=== PATIENT | female | born 1975 | race Hispanic/Latino ===

== ENCOUNTER 2017-09-05 18:39 | Emergency (ER) | payer SELFPAY ==
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
[2017-09-05 20:20] VITALS: BP 122/76; TEMP 98.2; O2SAT 100
== END 2017-09-05 20:09 | disposition home or self-care (01) ==
LOC: ER 18:39
DX: S00.90XA Unspecified superficial injury of unspecified part of head, initial encounter (principal); M50.80 Other cervical disc disorders, unspecified cervical region; V89.2XXA Person injured in unspecified motor-vehicle accident, traffic, initial encounter; Z88.0 Allergy status to penicillin; I10 Essential (primary) hypertension; E03.9 Hypothyroidism, unspecified
CPT/HCPCS: 70450; 72125; 99284

== ENCOUNTER 2018-02-22 18:02 | Emergency (ER) | payer SELFPAY ==
[2018-02-22 19:03] LABS: Absolute Monocytes 0.5 K/uL (0.1-1.3); Absolute Neutrophil 5.4 K/uL (1.8-8.0); Basophils % 0.3 % (0-1.3); Eosinophils % 0.7 % (0-4.4); Hematocrit 38.4 % (36.0-45.0); Lymphocytes % 24.8 % (15.3-44.8); MCH 29.8 pg (27.0-35.0); MCV 86.5 fL (80-100); MPV 9.9 fL (7.6-11.3); Monocytes % 6.7 % (3.3-12.3); RBC Red Blood Cell Count 4.45 M/uL (3.86-4.86)
[2018-02-22 19:30] LABS: ALT/SGPT 21 U/L (12-78); AST/SGOT 11 U/L (15-37); Albumin 3.5 g/dL (3.4-5.0); Alkaline Phosphatase 47 U/L (45-117); BUN Blood Urea Nitrogen 12 mg/dL (7-18); Bicarbonate 23 mmol/L (21-32); Bilirubin Direct 0.1 mg/dL (0-0.2); Bilirubin Total 0.3 mg/dL (0.2-1.0); Glucose Level 92 mg/dL (74-106); Lipase 177 U/L (73-393); Potassium 3.9 mmol/L (3.5-5.1); Protein, Total 7.2 g/dL (6.4-8.2); Sodium Level 139 mmol/L (136-145); Troponin I < 0.02 ng/mL (0.0-0.045)
[2018-02-22 19:55] LABS: Urine Blood 2+ (NEG); Urine Glucose NEGATIVE (NEG); Urine Protein NEGATIVE (NEG)
--- NOTE | 2018-02-22 20:34 | RAD REPORT ---
EXAM DESCRIPTION: CT - Abdomen Pelvis W Contrast - 02/22/2018 7:57 pm CLINICAL HISTORY: Abdominal pain/dysuria COMPARISON: none. TECHNIQUE: Computed axial tomography of the abdomen pelvis was obtained. 100 cc Isovue-300 was admin istered intravenously. Oral contrast was not requested which limits evaluation of bowel. All CT scans are performed using dose optimization technique as appropriate and may include automated exposure control or mA/KV adjustment according to patient size. FINDINGS: The liver, spleen, pancreas, adrenal and kidneys appear unremarkable. There is no evidence of diverticulitis. The appendix is normal. An adnexal mass is not seen An umbilical hernia contains fat. The neck measures 3 centimeters. Mild edema is present within herni ated fat. IMPRESSION: Umbilical hernia. Mild edema within the herniated fat may indicate inflammation
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
--- NOTE | 2018-02-22 21:31 | ER ---
Nurse's Notes [facility] Name: Claudine Deng Age: 42 yrs Sex: Female : 1975 Arrival Date: 02/22/2018 Time: 18:04 Bed 5 Private MD: Diagnosis: Dysuria;Hematuria, unspecified;Umbilical hernia;Back Pain Presentation: 02/22 18:06 Presenting complaint: Patient states: Mid back pain and burning with urination for 1 aj week. Denies fever. Transition of care: patient was not received from another setting of care. Onset of symptoms was February 15, 2018. Risk Assessment: Do you want to hurt yourself or someone else? Patient reports no desire to harm self or others. Initial Sepsis Screen: Does the patient meet any 2 criteria? No. Patient's initial sepsis screen is negative. Does the patient have a suspected source of infection? No. Patient's initial sepsis screen is negative. Care prior to arrival: None. 18:06 Method Of Arrival: Ambulatory aj 18:06 Acuity: LUAN 3 aj Triage Assessment: 18:07 General: Appears in no apparent distress. comfortable, Behavior is calm, cooperative, aj appropriate for age. Pain: Complains of pain in mid back area. Neuro: Level of Consciousness is awake, alert, obeys commands, Oriented to person, place, time, situation, Appropriate for age. Respiratory: Airway is patent Respiratory effort is even, unlabored, Respiratory pattern is regular, symmetrical. : Reports burning with urination, pain in bilateral in lower back. Musculoskeletal: Circulation, motion, and sensation intact. 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 - Social history:: Smoking status: Patient/guardian denies using tobacco. - Ebola Screening: : Patient negative for fever greater than or equal to 101.5 degrees Fahrenheit, and additional compatible Ebola Virus Disease symptoms Patient denies exposure to infectious person Patient denies travel to an Ebola-affected area in the 21 days before illness onset No symptoms or risks identified at this time. Screenin:16 Abuse screen: Denies threats or abuse. Nutritional screening: No deficits noted. tw2 Tuberculosis screening: No symptoms or risk factors identified. Fall Risk None identified. Assessment: 19:45 Reassessment: Patient appears in no apparent distress at this time. No changes from d3 previously documented assessment. Patient and/or family updated on plan of care and expected duration. Pain level reassessed. Patient is alert, oriented x 3, equal unlabored respirations, skin warm/dry/pink. see triage assessment. Neuro: Level of Consciousness is awake, alert, obeys commands, Oriented to person, place, time, situation. 20:30 Reassessment: Patient appears in no apparent distress at this time. No changes from jd3 previously documented assessment. Patient and/or family updated on plan of care and expected duration. Pain level reassessed. Patient is alert, oriented x 3, equal unlabored respirations, skin warm/dry/pink. 21:05 Reassessment: Patient appears in no apparent distress at this time. No changes from jd3 previously documented assessment. Patient and/or family updated on plan of care and expected duration. Pain level reassessed. Patient is alert, oriented x 3, equal unlabored respirations, skin warm/dry/pink. 21:53 Reassessment: Patient and/or family updated on plan of care and expected duration. Pain ea level reassessed. Patient is alert, oriented x 3, equal unlabored respirations, skin warm/dry/pink. Discharge instructions given to patient, verbalized the understanding of instruction. Vital Signs: 18:07 BP 119 / 62; Pulse 65; Resp 19; Temp 98.5; Pulse Ox 100% on R/A; Weight 81.65 kg; aj Height 5 ft. 4 in. (162.56 cm); 21:02 BP 124 / 87; Pulse 69; Resp 17; Pulse Ox 100% on R/A; mw2 21:55 BP 123 / 80; Pulse 70; Resp 18; Pulse Ox 99% on R/A; ea 18:07 Body Mass Index 30.90 (81.65 kg, 162.56 cm) ED Course: 18:04 Patient arrived in ED. mr 18:07 Triage completed. aj 18:07 Arm band placed on right wrist. Patient placed in an exam room. aj 18:09 Mahad Han, RN is Primary Nurse. bp 18:12 Adonay Orta PA is PHCP. [facility] 18:13 Mitch Chiang MD is Attending Physician. [facility] 18:15 Bed in low position. Call light in reach. Adult w/ patient. Pulse ox on. NIBP on. tw2 18:53 Inserted saline lock: 20 gauge in right antecubital area, using aseptic technique. tw2 Blood collected. 19:[address] 2 19:53 CT completed. Patient tolerated procedure well. Patient moved back from CT. 2 19:57 CT Abd/Pelvis - W/Contrast In Process Unspecified. EDMS 21:28 Gilbert Gibson MD is Referral Physician. [facility] 21:28 Haseeb Quan MD is Referral Physician. [facility] 21:28 Jairo Pabon MD is Referral Physician. [facility] 21:28 Amber Mitchell MD is Referral Physician. [facility] 21:54 No provider procedures requiring assistance completed. IV discontinued, intact, ea bleeding controlled, No redness/swelling at site. Pressure dressing applied. Administered Medications: No medications were administered Outcome: 21:29 Discharge ordered by MD. [facility] 21:54 Discharged to home ambulatory, with family. ea 21:54 Condition: improved 21:54 Discharge instructions given to patient, Instructed on discharge instructions, follow up and referral plans. medication usage, Demonstrated understanding of instructions, follow-up care, medications, Prescriptions given X 3. 21:55 Patient left the ED. ea Signatures: Dispatcher [employer] EDMS Belen Harrell, RN Adonay Carlson PA PA maura ChampionVickie Rachelle Zambrano RN RN tw2 Elza Lomeli 2 Diana Ellison RN RN ea Davies, Jonathon, RN RN jMahad Arnold, RN RN Sam Mao mw2
[2018-02-22 22:02] VITALS: TEMP 98.5
[2018-02-22 22:07] VITALS: BP 123/80; O2SAT 99
== END 2018-02-22 21:55 | disposition home or self-care (01) ==
LOC: ER 18:02
DX: K42.9 Umbilical hernia without obstruction or gangrene (principal); R31.9 Hematuria, unspecified; R30.0 Dysuria; I10 Essential (primary) hypertension; E03.9 Hypothyroidism, unspecified; Z88.0 Allergy status to penicillin
CPT/HCPCS: 36415; 74177; 80048; 80076; 81003; 81025; 83690; 84484; 85025; 99284; Q9967

== ENCOUNTER 2019-11-24 09:45 | Day surgery (SDC) | payer SELFPAY ==
[2019-11-24] MEDS ORDERED: Ringers Lactate 1,000 ML IV ONE ×2 (10:01→12:14)
[2019-11-24] MEDS ORDERED: CEFAZOLIN/SWI 2gm 0 GM/0 ML SYR ONE (10:01)
[2019-11-24 10:07] LABS: Specific Gravity 1.025 (1.005-1.030)
[2019-11-24] MEDS ORDERED: BUPIVACA 0.25%/EPI 0.0005%/PF 30 ML VIAL ONE (10:13)
[2019-11-24] MEDS ORDERED: MIDAZOLAM HCL 2 MG/2 ML INJ ONE (10:23)
[2019-11-24] MEDS ORDERED: propofoL 200 MG/20 ML VIAL IV ONE (10:23)
[2019-11-24] MEDS ORDERED: FENTANYL CITR 100 MCG/2 ML ONE ×2 (10:23→11:50)
[2019-11-24] MEDS ORDERED: ROCURONIUM 50 MG/5 ML VIAL IV ONE (10:23)
[2019-11-24] MEDS ORDERED: LIDOCAINE 1% MPF 5 ML VIAL ONE (10:23)
[2019-11-24] MEDS ORDERED: VANCOMYCIN 1 GM/VIAL ONE (11:24)
--- OUTSIDE RECORDS SUMMARY | 2019-11-24 11:28 | XMS REPORT | Continuity of Care Document ---
:1975 Author Organization [facility] t Address [address] [place] [address] Care Team Providers Name Role Phone Pob1, Care Clinic Attending Clinician Unavailable Anthony HERNANDEZ, S Attending Clinician Gabe Quan MD Attending Clinician Pob, Lab Main Attending Clinician Unavailable Problems This patient has no known problems. Allergies, Adverse Reactions, Alerts This patient has no known allergies or adverse reactions. Medications This patient has no known medications. Procedures This patient has no known procedures. Encounters Start End Encounter Admission Attending Care Care Encounter Source Date/Time Date/Time Type Type Clinicians Facility Department ID 2019-07-22 2019-07-22 Urgent Pob1, Acute [facility] [id number] 17:53:05 18:52:38 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
[2019-11-24] MEDS ORDERED: ONDANSETRON 4 MG/2 ML VIAL ONE ×2 (11:53→13:09)
[2019-11-24] MEDS ORDERED: GLYCOPYRROLATE 0.2 MG/ML SYR ONE ×2 (11:53)
[2019-11-24] MEDS ORDERED: dexAMETHasone 10 MG/ML VIAL ONE (11:53)
[2019-11-24] MEDS ORDERED: KETOROLAC 30 MG/ML INJ ONE (11:53)
[2019-11-24] MEDS ORDERED: NEOSTIGMINE 1 MG/ML -5 ML ONE (11:53)
--- NOTE | 2019-11-24 12:21 | P.OP ---
Preoperative diagnosis: Ventral Incisional Hernia Postoperative diagnosis: Ventral Incisional Hernia Primary procedure: Laparoscopic Ventral Incisional Hernia Repair with Mesh Secondary procedure: Laparoscopic Adhesiolysis Anesthesia: GETA + Local Estimated blood loss: <5cc Specimen: None Findings: Large Incisional Hernia Complications: None Implants: Bard Ventralite ST with echo 15.2 cm round mesh Transferred to: Recovery Room Condition: Good
[2019-11-24] MEDS: HYDROMORPHONE HCL 2 MG/ML inj ONE ×4 (12:40→13:02)
[2019-11-24 12:45] VITALS: O2SAT 100
[2019-11-24] MEDS ORDERED: HYDROCODONE/APAP 5/325 MG TAB ONE (13:48)
[2019-11-24 14:56] VITALS: BP 116/51; TEMP 97.1
--- NOTE | 2019-11-24 22:21 | OP ---
Date of Procedure: 11/24/2019 Surgeon: Levi Camarena MD, Brief History Of Present Illness: The patient is a 43-year-old female, who had a laparoscopic cholec ystectomy and developed a hernia shortly thereafter in the periumbilical region, continue to worse, p rogressive pain. As such, I saw and evaluated the patient, and found she was deemed appropriate for operative intervention with a large ventral hernia. Preoperative Diagnosis: Ventral incisional hernia. Postoperative Diagnosis: Ventral incisional hernia. Procedure Performed: 1.Laparoscopic ventral hernia repair with mesh. 2.Laparoscopic adhesiolysis. Anesthesia: General endotracheal plus local with 0.25% Marcaine with epinephrine. Estimated Blood Loss: Less than 5 mL. Specimens: None. Findings: Large incisional hernia. Complications: None. Implants: Bard Ventralight ST with Echo Positioning, 15.2 cm round mesh. Disposition: Transferred to recovery room in good condition. Procedure In Detail: After informed was obtained, the patient was brought to the operating room, pre pped and draped in the usual sterile fashion. After adequate anesthesia was achieved, a left upper q uadrant incision was made. After appropriately anesthetizing the skin, a 5 mm 0-degree optical troca r was introduced in the abdomen without evidence of complication. Insufflation was obtained to 15 mm Hg at this time. There was no injury to vital structures upon entry into the abdomen. After this, t he abdomen was completely insufflated and inspected. A large amount of the omentum was found to be i n a ventral incisional hernia. At this point, I then placed 2 additional trocars, 1 in the left lowe r quadrant, this was a 12 mm trocar under and placed under direct visualization without evidence of c omplication and 1 in the right upper quadrant, which was similarly anesthetized and sharply incised. A 5 mm trocar was introduced in the abdomen without evidence of complication. Dissection and LigaSu re were used to remove the omentum, which was a significant portion of the omentum through the hernia defect and this was put back in the normal anatomic position without evidence of complication. I th en inspected the hernia and found it to be approximately a 10 cm hernia in size. I brought in the En do Stitch with a V-Loc and proceeded to suture the hernia defect closed in a running fashion without evidence of any complication and good apposition of the tissue was appreciated at this point. At thi s time, I then brought a [address] mesh with Echo Positioning System in through the 12 mm trocar, positioned in the central portion of the defect and deployed it at this point. At this point, I then used the SorbaFix absorbable fixation system and used approximately 60 tacks to s ecure the mesh. The balloon deployment system was removed and found to be intact on the back table a nd the remainder of the absorbable fixation tacks were used as a double crown type fashion to secure the mesh at the anterior abdominal wall with good apposition. The patient was checked under desuffla tion and regular insufflation. There was no evidence of any complication. At this point, I then rem daniele the 12 mm trocar and closed the trocar defect with a Erick-Christiano suture passer with a 0 Vicr yl in interrupted fashion with good approximation of tissues. All skin incisions were then copiously irrigated after completely desufflating the abdomen under direct visualization and the skin was then closed with a 4-0 Monocryl in a running fashion with Dermabond placed on top. The patient tolerated the procedure well without evidence of complication, transferred to PACU in good condition. All cou nts were correct at the end of the case. GILLES/IZZY Voice ID: [id number] Report ID: [id number]
== END 2019-11-24 14:50 | disposition home or self-care (01) ==
LOC: PRE 09:45
PROVIDERS: ATTEND Surgery
PROC: 0WUF4JZ Supplement Abdominal Wall with Synthetic Substitute, Percutaneous Endoscopic Approach (ICD-10-PCS; principal; 2019-11-24 12:00)
DX: K43.2 Incisional hernia without obstruction or gangrene (principal); I10 Essential (primary) hypertension; E03.9 Hypothyroidism, unspecified; Z11.59 Encounter for screening for other viral diseases; Z90.49 Acquired absence of other specified parts of digestive tract; Z88.0 Allergy status to penicillin
CPT/HCPCS: 81025; J0690; J1100; J1170; J2250; J2405; J2704; J2710; J3010; J3370; J7120; U0002

== ENCOUNTER 2023-03-16 14:41 | Emergency (ER) | payer SELFPAY ==
--- OUTSIDE RECORDS SUMMARY | 2023-03-16 14:45 | XMS REPORT | Continuity of Care Document ---
:1975 Author Organization [facility] t Address [address] [facility] [address] [place] [address] Care Team Providers Name Role Phone Barbara Hill Baljeet Primary Care Physician Edwige Bell PA-C Attending Clinician Unknown, Attending Attending Clinician Unavailable EDWIGE BELL Attending Clinician Unavailable ELLEN PAGE Attending Clinician Unavailable Ellen Page MD Attending Clinician HOSEA CABAN Attending Clinician Unavailable Hosea Lopez Attending Clinician Doctor Unassigned, [place] Attending Clinician Unavailable [email or web address] Attending Clinician Unavailable NEETA KNOX Attending Clinician Unavailable Neeta Knox MD Attending Clinician JACOB FOSTER Attending Clinician Unavailable Jacob Foster MD Attending Clinician LYNNE CROCKETT Attending Clinician Unavailable Lynne Crockett MD Attending Clinician Pob, [facility] Main Attending Clinician Unavailable Jordy ONTIVEROS Attending Clinician Unavailable Jordy Molina Attending Clinician JOE MAIN Attending Clinician Unavailable Joe Carroll Attending Clinician SCOTT JEAN BAPTISTE Attending Clinician Unavailable Scott Jean Baptiste DO Attending Clinician JOSE LENZ Attending Clinician Unavailable Nurse, Adc Pob Immunization Attending Clinician Unavailable Jose Lenz DO Attending Clinician ZAKIA VENTURA Attending Clinician Unavailable URI MEEKS Attending Clinician Unavailable Pob[facility], [facility] Attending Clinician Unavailable MITA MARTÍNEZ Attending Clinician Unavailable Frida Romero S Attending Clinician BRANDON QUAN Attending Clinician Unavailable Brandon Quan MD Attending Clinician [email or web address] Admitting Clinician Unavailable NEETA KNOX Admitting Clinician Unavailable Jordy ONTIVEROS Admitting Clinician Unavailable SCOTT JEAN BAPTISTE Admitting Clinician Unavailable BRANDON QUAN Admitting Clinician Unavailable Payers Payer Name Policy Type Policy Number Effective Date Expiration Date S meggan MEDICAID ALIEN PENDING 2022 2022 PENDING 00:00:00 00:00:00 Problems Condition Condition Condition Status Onset Resolution Last Treating Co mments Source Name Details Category Date Date Treatment Clinician Date Hypothyroi Hypothyroi Problem Active [facility] dism dism 07-02 Medical 00:00: 00 Obesity Obesity Problem Active [facility] 05 Medical 00:00: 00 Hypertensi Hypertensi Problem Active [facility] ve ve -05 Medical disorder Disorder 00:00: 00 Symptom Symptom Problem Active [facility] occurs Occurs 07-02 Medical premenstru Premenstru 00:00: ally ally 00 Obesity Obesity Disease Active [facility] (BMI (BMI 6-08 ity of 30-39.9) 30-39.9) 00:00: [place] 00 Medical Branch Second-deg Second-deg Disease Active Overview : Univers ree ree 10-19 Formattin ity of perineal perineal 00:00: g of this [place] laceration laceration 00 note Me dical , with , with might be Branch delivery delivery different from the original. Vacuum assist Pre-eclamp Pre-eclamp Disease Active Overview : Univers nathan, nathan, 10-19 Formattin ity of delivered delivered 00:00: [place] of this [place] 00 note Medical might be Branch different from the original. ICD10 Diagnosis [address] [employer] Maternal Maternal Disease Active Overview: Un [place] diabetes diabetes 10-19 Formattin ity of mellitus mellitus 00:00: g of this [place] with with 00 note Medical delivery delivery might be Bran ch different from the original. [id number] Diagnosis Term [address] [facility] [employer] Second-deg Second-deg Disease Active Overview : Univers ree ree 10-19 Formattin ity of perineal perineal 00:00: g of this [place] laceration laceration 00 note Me dical , with , with might be Branch delivery delivery different from the original. Vacuum assist Maternal Maternal Disease Active Overview: Un [place] diabetes diabetes 10-19 Formattin ity of mellitus mellitus 00:00: g of this [place] with with 00 note Medical delivery delivery might be Bran ch different from the original. [id number] Diagnosis [address] [facility] [employer] Hypothyroi Hypothyroi Disease Active Overview : [facility] dism dism - Formattin ity of 00:00: g of this [place] 00 note Medical might be Branch different from the original. ICD10 [address] [facility] [employer] HLD HLD Disease Active Overview: Univer s (hyperlipi (hyperlipi 07-16 Formattin ity of demia) demia) 00:00: g of this [place] 00 note Medical might be Branch different from the original. ICD10 [address] [facility] [employer] Allergies, Adverse Reactions, Alerts Allergy Allergy Status Severity Reaction(s) Onset Inactive Treating Comm ents Source Name Type Date Date Clinician Penicill Propensi Active Rash Univer s ins ty to 9-25 ity of adverse 00:00: [place] reaction 00 Medical s Branch PENICILL Drug Active Rash Univers INS Class 9-25 ity of 00:00: [place] 00 Medical Branch Penicill Propensi Active Rash Univer s ins ty to 9-25 ity of adverse 00:00: [place] reaction 00 Medical s Branch Penicill Propensi Active Rash Univer s ins ty to 9-25 ity of adverse 00:00: [place] reaction 00 Medical s Branch PENICILL Allergy Active Rash [facility] INS to Medical substanc e Social History Social Habit Start Date Stop Date Quantity Comments Source Sexual orientation Univer sity of [facility] Exposure to 2022-09-16 2022-09-26 Not sure University of SARS-CoV-2 (event) 00:00:00 03:20:00 [facility] Tobacco use and 2020-05-10 2020-05-10 Smokeless Universit y of exposure 00:00:00 00:00:00 tobacco non-user [facility] dical [place] Alcohol intake 2020-05-10 2020-05-10 Current University of 00:00:00 00:00:00 non-drinker of [facility] alcohol Branch (finding) History of Social 2020-02-16 2020-02-16 Univers ity of function 00:00:00 00:00:00 [facility] [birth year] [facility] Smoking Status Start Date Stop Date Source Never smoked tobacco [facility] Medications Ordered Filled Start Stop Current Ordering Indication Dosage Frequency Signature Comments Components Source Medication Medication Date Date Medication? Clinician (SIG) Name Name armen 2022- No [id number] Take 2 Univers n 250 mg 09-28 tablets by ity of tablet 00:00: 04:59 mouth [place] 00 :00 daily for Medical 1 day, Branch THEN 1 tablet daily for 4 days. ibuprofen 2022- No 800mg 800 mg, Uni vers (IBU) 09-26 Oral, ity of tablet 800 09:30: 09:24 ONCE, 1 [place] mg 00 :00 dose, On Medical e Branch 09/26/22 at 0430, JOHN ibuprofen Yes [id number] 800mg Take 1 Univers 800 mg 5-30 [id number] tablet by ity of tablet 00:00: mouth [place] 00 every 8 Medical (eight) Branch hours as needed for Pain (scale 4-6). ibuprofen Yes [id number] 800mg Take 1 Univers 800 mg 5-30 [id number] tablet by ity of tablet 00:00: mouth [place] 00 every 8 Medical (eight) Branch hours as needed for Pain (scale 4-6). Ciprofloxac 2022- No [id number] 3[drp] Place 3 Univers in 0.2 % 09-26 [id number] Drops in ity o f otic drops 00:00: 04:59 each ear 2 [place] 00 :00 (two) Medical times Branch daily for 7 days. Ciprofloxac 2022- No [id number] 3[drp] Place 3 Univers in 0.2 % 5-30 10-04 [id number] Drops in ity o f otic drops 00:00: 04:59 each ear 2 [place] 00 :00 (two) Medical times Branch daily for 7 days. ondansetron 2022-0 Yes [id number] 4mg Take 1 Univers 4 mg 2-01 tablet by ity of disintegrat 00:00: mouth [place] ing tablet 00 every 8 Medica l (eight) Branch hours as needed for Nausea and Vomiting (N/V). benzonatate 2022-0 Yes [id number] 200mg Take 1 Univers 200 mg 2-01 capsule by ity of capsule 00:00: mouth 3 00 (three) Medical times Branch daily as needed for Cough. ondansetron 2022-0 Yes [id number] 4mg Take 1 Univers 4 mg 2-01 tablet by ity of disintegrat 00:00: mouth [place] ing tablet 00 every 8 Medica l (eight) Branch hours as needed for Nausea and Vomiting (N/V). benzonatate 2022-0 Yes [id number] 200mg Take 1 Univers 200 mg 2-01 capsule by ity of capsule 00:00: mouth 3 [place] 00 (three) Medical times Branch daily as needed for Cough. ondansetron 2022-0 Yes [id number] 4mg Take 1 Univers 4 mg 2-01 tablet by ity of disintegrat 00:00: mouth [place] ing tablet 00 every 8 Medica l (eight) Branch hours as needed for Nausea and Vomiting (N/V). benzonatate 2022-0 Yes [id number] 200mg Take 1 Univers 200 mg 2-01 capsule by ity of capsule 00:00: mouth 3 00 (three) Medical times Branch daily as needed for Cough. oseltamivir 2022-0 2022- No [id number] 75mg Take 1 Univers (TAMIFLU) 2-01 02-07 4100 capsule by ity of 75 mg 00:00: 05:59 mouth 2 [place] capsule 00 :00 (two) Medical times Branch daily for 5 days. ondansetron 2023-0 2023- No 4mg 4 mg, Slow Univers (ZOFRAN 05-03 IV Push, ity of (PF)) 02:15: 01:39 ONCE, 1 [place] injection 4 00 :00 dose, On Medi francine mg Sun05/02/22 Branch at 2014, JOHN iopamidol 2022-0 2022- No [id number] 80mL 80 mL, Univers (ISOVUE 05-03 Intravenou ity o f 370-500 mL) 02:02: 02:15 s, ONCE, 1 [place] injection 00 :00 dose, On Medica l 80 mL Sun05/02/22 Branch at 2014, Routine morpHINE (4 2022- No 4mg 4 mg, Slow Univers mg/mL) 05-03 IV Push, ity of injection 4 01:15: 01:39 ONCE, 1 [place] mg 00 :00 dose, On Medical Sun05/02/22 Branch at 191, STAT ondansetron 2022-0 Yes [id number] 4mg Take 1 Univers 4 mg 1-03 tablet by ity of disintegrat 00:00: mouth [place] ing tablet 00 every 4 Medica l (four) Branch hours as needed for Nausea and Vomiting (N/V). traMADoL 50 2022-0 Yes [id number] 50mg Take 1 Univ ers mg tablet 1-03 tablet by ity o f 00:00: mouth [place] 00 every 6 Medical (six) Branch hours as needed for Pain (scale 4-6). Indication s: acute pain ondansetron 2022-0 Yes [id number] 4mg Take 1 Univers 4 mg 1-03 tablet by ity of disintegrat 00:00: mouth [place] ing tablet 00 every 4 Medica l (four) Branch hours as needed for Nausea and Vomiting (N/V). traMADoL 50 2022-0 Yes [id number] 50mg Take 1 Univ ers mg tablet 1-03 tablet by ity o f 00:00: mouth [place] 00 every 6 Medical (six) Branch hours as needed for Pain (scale 4-6). Indication s: acute pain ondansetron 2022-0 Yes [id number] 4mg Take 1 Univers 4 mg 1-03 tablet by ity of disintegrat 00:00: mouth [place] ing tablet 00 every 4 Medica l (four) Branch hours as needed for Nausea and Vomiting (N/V). traMADoL 50 0 Yes [id number] 50mg Take 1 Univ ers mg tablet 1-03 tablet by ity o f 00:00: mouth [place] 00 every 6 Medical (six) Branch hours as needed for Pain (scale 4-6). Indication s: acute pain ondansetron Yes [id number] 4mg Take 1 Univers 4 mg 1-03 tablet by ity of disintegrat 00:00: mouth [place] ing tablet 00 every 4 Medica l (four) Branch hours as needed for Nausea and Vomiting (N/V). traMADoL 50 Yes [id number] 50mg Take 1 Univ ers mg tablet 1-03 tablet by ity o f 00:00: mouth [place] 00 every 6 Medical (six) Branch hours as needed for Pain (scale 4-6). Indication s: acute pain ondansetron Yes [id number] 4mg Take 1 Univers 4 mg 1-03 tablet by ity of disintegrat 00:00: mouth [place] ing tablet 00 every 4 Medica l (four) Branch hours as needed for Nausea and Vomiting (N/V). traMADoL 50 Yes [id number] 50mg Take 1 Univ ers mg tablet 1-03 tablet by ity o f 00:00: mouth [place] 00 every 6 Medical (six) Branch hours as needed for Pain (scale 4-6). Indication s: acute pain levothyroxi 2021-04 Yes [id number] 125ug Take 1 Univers ne 125 mcg 0-24 tablet by ity of tablet 00:00: mouth [place] 00 every Medical morning. Branch levothyroxi 2021-04 Yes [id number] 125ug Take 1 Univers ne 125 mcg 0-24 tablet by ity of tablet 00:00: mouth [place] 00 every Medical morning. Branch levothyroxi 2021-04 Yes [id number] 125ug Take 1 Univers ne 125 mcg 0-24 tablet by ity of tablet 00:00: mouth [place] 00 every Medical morning. Branch levothyroxi 2021-04 Yes [id number] 125ug Take 1 Univers ne 125 mcg 0-24 tablet by ity of tablet 00:00: mouth [place] 00 every Medical morning. Branch levothyroxi 2021-04 Yes [id number] 125ug Take 1 Univers ne 125 mcg 0-24 tablet by ity of tablet 00:00: mouth [place] 00 every Medical morning. Branch levothyroxi 2021-04 Yes [id number] 125ug Take 1 Univers ne 125 mcg 0-24 tablet by ity of tablet 00:00: mouth [place] 00 every Medical morning. Branch levothyroxi 0 Yes [id number] 125ug Take 1 Univers ne 125 mcg 4-22 tablet by ity of tablet 00:00: mouth [place] 00 every Medical morning. Branch levothyroxi 2021-0 2021- No [id number] 125ug Take 1 Univers ne 125 mcg 4-22 10-24 tablet by ity of tablet 00:00: 00:00 mouth [place] 00 :00 every Medical morning. Branch levothyroxi 0 Yes [id number] 125ug Take 1 Univers ne 125 mcg 3-15 tablet by ity of tablet 00:00: mouth [place] 00 every Medical morning. Branch levothyroxi 2021-0 Yes [id number] 125ug Take 1 Univers ne 125 mcg 3-15 tablet by ity of tablet 00:00: mouth [place] 00 every Medical morning. Branch levothyroxi 0 Yes [id number] 125ug Take 1 Univers ne 125 mcg 3-15 tablet by ity of tablet 00:00: mouth [place] 00 every Medical morning. Branch levothyroxi 2021-0 2021- No [id number] 125ug Take 1 Univers ne 125 mcg 3-15 04-22 tablet by ity of tablet 00:00: 00:00 mouth [place] 00 :00 every Medical morning. Branch lisinopriL 2021-0 Yes 5mg Take 5 mg Un [place] 5 mg tablet 1-16 by mouth ity of 00:00: every [place] 00 morning. Medical Branch lisinopriL 2-0 Yes 5mg Take 5 mg Un [place] 5 mg tablet 1-16 by mouth ity of 00:00: every [place] 00 morning. Medical Branch lisinopriL 2-0 Yes 5mg Take 5 mg Un [place] 5 mg tablet 1-16 by mouth ity of 00:00: every [place] 00 morning. Medical Branch lisinopriL 2021-0 Yes 5mg Take 5 mg Un [place] 5 mg tablet 1-16 by mouth ity of 00:00: every [place] 00 morning. Medical Branch lisinopriL 2-0 Yes 5mg Take 5 mg Un [place] 5 mg tablet 1-16 by mouth ity of 00:00: every morning. Medical Branch lisinopriL 2-0 Yes 5mg Take 5 mg Un [place] 5 mg tablet 1-16 by mouth ity of 00:00: every morning. Medical Branch lisinopriL 2-0 Yes 5mg Take 5 mg Un [place] 5 mg tablet 1-16 by mouth ity of 00:00: every morning. Medical Branch lisinopriL 2-0 Yes 5mg Take 5 mg Un [place] 5 mg tablet 1-16 by mouth ity of 00:00: every morning. Medical Branch lisinopriL 2-0 Yes 5mg Take 5 mg Un [place] 5 mg tablet 1-16 by mouth ity of 00:00: morning. Medical Branch lisinopriL 2021-0 Yes 5mg Take 5 mg Un [place] 5 mg tablet 1-16 by mouth ity of 00:00: morning. Medical Branch naproxen 2020-04 Yes [id number] 500mg Take 1 U nivers 500 mg 2-16 tablet by ity of tablet 00:00: mouth (two) Medical times Branch daily with meals. methocarbam 2020-04 Yes [id number] 500mg Take 1 Univers oL 500 mg 2-16 tablet by ity o f tablet 00:00: mouth (four) Medical times Branch daily as needed (muscle pain). ondansetron 2020-04 Yes [id number] 4mg Take 1 Univers (ZOFRAN 2-16 tablet by ity of ODT) 4 mg 00:00: mouth [place] disintegrat 00 every 8 Medic al ing tablet (eight) Branch hours as needed for Nausea and Vomiting (N/V). naproxen 2020-04 Yes [id number] 500mg Take 1 U nivers 500 mg 2-16 tablet by ity of tablet 00:00: mouth (two) Medical times Branch daily with meals. methocarbam 2020-04 Yes [id number] 500mg Take 1 Univers oL 500 mg 2-16 tablet by ity o f tablet 00:00: mouth (four) Medical times Branch daily as needed (muscle pain). ondansetron 2020-04 Yes [id number] 4mg Take 1 Univers (ZOFRAN 2-16 tablet by ity of ODT) 4 mg 00:00: mouth [place] disintegrat 00 every 8 Medic al ing tablet (eight) Branch hours as needed for Nausea and Vomiting (N/V). naproxen 2020-04 Yes [id number] 500mg Take 1 U nivers 500 mg 2-16 tablet by ity of tablet 00:00: mouth 2 00 (two) Medical times Branch daily with meals. methocarbam 2020-04 Yes [id number] 500mg Take 1 Univers oL 500 mg 2-16 tablet by ity o f tablet 00:00: mouth 4 00 (four) Medical times Branch daily as needed (muscle pain). ondansetron 2020-04 Yes [id number] 4mg Take 1 Univers (ZOFRAN 2-16 tablet by ity of ODT) 4 mg 00:00: mouth [place] disintegrat 00 every 8 Medic al ing tablet (eight) Branch hours as needed for Nausea and Vomiting (N/V). naproxen 2020-04 Yes [id number] 500mg Take 1 U nivers 500 mg 2-16 tablet by ity of tablet 00:00: mouth 00 (two) Medical times Branch daily with meals. methocarbam 2020-04 Yes [id number] 500mg Take 1 Univers oL 500 mg 2-16 tablet by ity o f tablet 00:00: mouth 4 (four) Medical times Branch daily as needed (muscle pain). ondansetron 2020-04 Yes [id number] 4mg Take 1 Univers (ZOFRAN 2-16 tablet by ity of ODT) 4 mg 00:00: mouth [place] disintegrat 00 every 8 Medic al ing tablet (eight) Branch hours as needed for Nausea and Vomiting (N/V). naproxen 2020-04 Yes [id number] 500mg Take 1 U nivers 500 mg 2-16 tablet by ity of tablet 00:00: mouth 2 [place] 00 (two) Medical times Branch daily with meals. methocarbam 2020-04 Yes [id number] 500mg Take 1 Univers oL 500 mg 2-16 tablet by ity o f tablet 00:00: mouth 4 00 (four) Medical times Branch daily as needed (muscle pain). ondansetron 2020-04 Yes [id number] 4mg Take 1 Univers (ZOFRAN 2-16 tablet by ity of ODT) 4 mg 00:00: mouth [place] disintegrat 00 every 8 Medic al ing tablet (eight) Branch hours as needed for Nausea and Vomiting (N/V). naproxen 2020-04 Yes [id number] 500mg Take 1 U nivers 500 mg 2-16 tablet by ity of tablet 00:00: mouth (two) Medical times Branch daily with meals. methocarbam 2020-04 Yes [id number] 500mg Take 1 Univers oL 500 mg 2-16 tablet by ity o f tablet 00:00: mouth (four) Medical times Branch daily as needed (muscle pain). naproxen 2020-04 Yes [id number] 500mg Take 1 U nivers 500 mg 2-16 tablet by ity of tablet 00:00: mouth (two) Medical times Branch daily with meals. methocarbam 2020-04 Yes [id number] 500mg Take 1 Univers oL 500 mg 2-16 tablet by ity o f tablet 00:00: mouth (four) Medical times Branch daily as needed (muscle pain). naproxen 2020-04 Yes [id number] 500mg Take 1 U nivers 500 mg 2-16 tablet by ity of tablet 00:00: mouth (two) Medical times Branch daily with meals. methocarbam 2020-04 Yes [id number] 500mg Take 1 Univers oL 500 mg 2-16 tablet by ity o f tablet 00:00: mouth (four) Medical times Branch daily as needed (muscle pain). naproxen 2020-04 Yes [id number] 500mg Take 1 U nivers 500 mg 2-16 tablet by ity of tablet 00:00: mouth (two) Medical times Branch daily with meals. methocarbam 2020-04 Yes [id number] 500mg Take 1 Univers oL 500 mg 2-16 tablet by ity o f tablet 00:00: mouth (four) Medical times Branch daily as needed (muscle pain). naproxen 2020-04 Yes [id number] 500mg Take 1 U nivers 500 mg 2-16 tablet by ity of tablet 00:00: mouth 2 00 (two) Medical times Branch daily with meals. methocarbam 2020-04 Yes [id number] 500mg Take 1 Univers oL 500 mg 2-16 tablet by ity o f tablet 00:00: mouth 4 [place] 00 (four) Medical times Branch daily as needed (muscle pain). ondansetron 2020-04- No [id number] 4mg Take 1 Univers (ZOFRAN 2-16 - tablet by ity of ODT) 4 mg 00:00: 00:00 mouth [place] disintegrat 00 :00 every 8 Medic al ing tablet (eight) Branch hours as needed for Nausea and Vomiting (N/V). chlorphenir 2020-04 Yes [id number] 4mg Take 1 Univers amine 4 mg 1-24 tablet by ity of tablet 00:00: mouth [place] 00 every 6 Medical (six) Branch hours as needed for Allergies or Runny nose. calcium/mag 2020-04 Yes [id number] 1{each} Take 1 Univers nesium/zinc 1-24 Each by ity o f (CALCIUM-MA 00:00: mouth [place] GNESUIUM-ZI 00 daily. Medica l NC) Branch 333-133-5 mg Tab benzonatate 2020-04 Yes [id number] 100mg Take 1 Univers 100 mg 1-24 capsule by ity of capsule 00:00: mouth 3 (three) Medical times Branch daily as needed for Cough. chlorphenir 2020-04 Yes [id number] 4mg Take 1 [facility] amine 4 mg 1-24 tablet by ity of tablet 00:00: mouth [place] 00 every 6 Medical (six) Branch hours as needed for Allergies or Runny nose. calcium/mag 2020-04 Yes [id number] 1{each} Take 1 Univers nesium/zinc 1-24 Each by ity o f (CALCIUM-MA 00:00: mouth [place] GNESUIUM-ZI 00 daily. Medica l NC) Branch 333-133-5 mg Tab benzonatate 2020-04 Yes [id number] 100mg Take 1 Univers 100 mg 1-24 capsule by ity of capsule 00:00: mouth 3 [place] 00 (three) Medical times Branch daily as needed for Cough. chlorphenir 2020-04 Yes [id number] 4mg Take 1 Univers amine 4 mg 1-24 tablet by ity of tablet 00:00: mouth [place] 00 every 6 Medical (six) Branch hours as needed for Allergies or Runny nose. calcium/mag 2020-04 Yes [id number] 1{each} Take 1 Univers nesium/zinc 1-24 Each by ity o f (CALCIUM-MA 00:00: mouth [place] GNESUIUM-ZI 00 daily. Medica l NC) Branch 333-133-5 mg Tab benzonatate 2020-04 Yes [id number] 100mg Take 1 Univers 100 mg 1-24 capsule by ity of capsule 00:00: mouth 3 [place] 00 (three) Medical times Branch daily as needed for Cough. chlorphenir 2020-04 Yes [id number] 4mg Take 1 [facility] amine 4 mg 1-24 tablet by ity of tablet 00:00: mouth [place] 00 every 6 Medical (six) Branch hours as needed for Allergies or Runny nose. calcium/mag 2020-04 Yes [id number] 1{each} Take 1 Univers nesium/zinc 1-24 Each by ity o f (CALCIUM-MA 00:00: mouth [place] GNESUIUM-ZI 00 daily. Medica l [place]) Branch 333-133-5 mg Tab benzonatate 2020-04 Yes [id number] 100mg Take 1 Univers 100 mg 1-24 capsule by ity of capsule 00:00: mouth 3 [place] 00 (three) Medical times Branch daily as needed for Cough. chlorphenir 2020-04 Yes [id number] 4mg Take 1 [facility] amine 4 mg 1-24 tablet by ity of tablet 00:00: mouth [place] 00 every 6 Medical (six) Branch hours as needed for Allergies or Runny nose. calcium/mag 2020-04 Yes [id number] 1{each} Take 1 Univers nesium/zinc 1-24 Each by ity o f (CALCIUM-MA 00:00: mouth [place] GNESUIUM-ZI 00 daily. Medica l [place]) Branch 333-133-5 mg Tab benzonatate 2020-04 Yes [id number] 100mg Take 1 Univers 100 mg 1-24 capsule by ity of capsule 00:00: mouth 3 [place] 00 (three) Medical times Branch daily as needed for Cough. chlorphenir 2020-04 Yes [id number] 4mg Take 1 [facility] amine 4 mg 1-24 tablet by ity of tablet 00:00: mouth [place] 00 every 6 Medical (six) Branch hours as needed for Allergies or Runny nose. calcium/mag 2020-04 Yes [id number] 1{each} Take 1 Univers nesium/zinc 1-24 Each by ity o f (CALCIUM-MA 00:00: mouth [place] GNESUIUM-ZI 00 daily. Medica l [place]) Branch 333-133-5 mg Tab benzonatate 2020-04 Yes [id number] 100mg Take 1 Univers 100 mg 1-24 capsule by ity of capsule 00:00: mouth 3 [place] 00 (three) Medical times Branch daily as needed for Cough. chlorphenir 2020-04 Yes [id number] 4mg Take 1 [facility] amine 4 mg 1-24 tablet by ity of tablet 00:00: mouth [place] 00 every 6 Medical (six) Branch hours as needed for Allergies or Runny nose. calcium/mag 2020-04 Yes [id number] 1{each} Take 1 Univers nesium/zinc 1-24 Each by ity o f (CALCIUM-MA 00:00: mouth [place] GNESUIUM-ZI 00 daily. Medica l [place]) Branch 333-133-5 mg Tab benzonatate 2020-04 Yes [id number] 100mg Take 1 Univers 100 mg 1-24 capsule by ity of capsule 00:00: mouth 3 [place] 00 (three) Medical times Branch daily as needed for Cough. chlorphenir 2020-04 Yes [id number] 4mg Take 1 [facility] amine 4 mg 1-24 tablet by ity of tablet 00:00: mouth [place] 00 every 6 Medical (six) Branch hours as needed for Allergies or Runny nose. calcium/mag 2020-04 Yes [id number] 1{each} Take 1 Univers nesium/zinc 1-24 Each by ity o f (CALCIUM-MA 00:00: mouth [place] GNESUIUM-ZI 00 daily. Medica l [place]) Branch 333-133-5 mg Tab benzonatate 2020-04 Yes [id number] 100mg Take 1 Univers 100 mg 1-24 capsule by ity of capsule 00:00: mouth 3 [place] 00 (three) Medical times Branch daily as needed for Cough. chlorphenir 2020-04 Yes [id number] 4mg Take 1 [facility] amine 4 mg 1-24 tablet by ity of tablet 00:00: mouth [place] 00 every 6 Medical (six) Branch hours as needed for Allergies or Runny nose. calcium/mag 2020-04 Yes [id number] 1{each} Take 1 [facility] nesium/zinc 1-24 Each by ity o f (CALCIUM-MA 00:00: mouth [place] GNESUIUM-ZI 00 daily. Medica l [place]) Branch 333-133-5 mg Tab benzonatate 2020-04 Yes [id number] 100mg Take 1 Univers 100 mg 1-24 capsule by ity of capsule 00:00: mouth 3 [place] 00 (three) Medical times Branch daily as needed for Cough. chlorphenir 2020-04 Yes [id number] 4mg Take 1 [facility] amine 4 mg 1-24 tablet by ity of tablet 00:00: mouth [place] 00 every 6 Medical (six) Branch hours as needed for Allergies or Runny nose. calcium/mag 2020-04 Yes [id number] 1{each} Take 1 Univers nesium/zinc 1-24 Each by ity o f (CALCIUM-MA 00:00: [facility] [place]) Branch 333-133-5 mg Tab benzonatate 2020-04 Yes [id number] 100mg Take 1 Univers 100 mg 1-24 capsule by ity of capsule 00:00: mouth 3 [place] (three) Medical times Branch daily as needed for Cough. lisinopril lisinopril No 1 Q1D lisinopril [facility] 5 mg tablet 5 mg tablet 5 mg M edical Take 1 Take 1 tablet tablet tablet Take 1 every day every day tablet by oral by oral every day route for route for by oral 90 days. 90 days. route for 90 days. levothyroxi levothyroxi No 1 Q1D levothyrox [facility] ne 125 mcg ne 125 mcg ine 125 Medical tablet Take tablet Take mcg tablet 1 tablet 1 tablet Take 1 every day every day tablet by oral by oral every day route for route for by oral 90 days. 90 days. route for 90 days. Vital Signs Vital Name Observation Time Observation Value Comments Source Systolic blood 2022-09-28 23:51:00 144 mm[Hg] Univer sity [facility] Diastolic blood 2022-09-28 23:51:00 83 mm[Hg] Unive [facility] Heart rate 2022-09-28 23:50:00 82 /min [facility] Body temperature 2022-09-28 23:50:00 36.72 Cheli [facility] Respiratory rate 2022-09-28 23:50:00 16 /min [facility] Body weight 2022-09-28 23:50:00 102.059 kg [facility] BMI 2022-09-28 23:50:00 43.94 kg/m2 [facility] Oxygen saturation in 2022-09-28 23:50:00 97 /min [facility] of Arterial blood by [facility] francine Pulse oximetry Branch Systolic blood 2022-09-26 08:19:00 171 mm[Hg] [facility]iver [facility] Diastolic blood 2022-09-26 08:19:00 92 mm[Hg] Unive [facility] Heart rate 2022-09-26 08:19:00 72 /min [facility] Body temperature 2022-09-26 08:19:00 37.11 Cheli [facility] Respiratory rate 2022-09-26 08:19:00 16 /min [facility] Body height 2022-09-26 08:19:00 152.4 cm [facility] Body weight 2022-09-26 08:19:00 90.719 kg [facility] BMI 2022-09-26 08:19:00 39.06 kg/m2 [facility] Oxygen saturation in 2022-09-26 08:19:00 99 /min [facility] blood by [facility] francine Pulse oximetry Branch Systolic blood 2022-05-31 18:43:00 143 mm[Hg] [facility]iver [facility] Diastolic blood 2022-05-31 18:43:00 84 mm[Hg] Unive [facility] Heart rate 2022-05-31 18:43:00 82 /min [facility] Body temperature 2022-05-31 18:43:00 37.28 Cheli [facility] Respiratory rate 2022-05-31 18:43:00 18 /min [facility] Body height 2022-05-31 18:43:00 152.4 cm Universi ty [facility] [place] Body weight 2022-05-31 18:43:00 90.719 kg Universi ty [facility] BMI 2022-05-31 18:43:00 39.06 kg/m2 Universi ty [facility] Oxygen saturation in 2022-05-31 18:43:00 98 /min [facility] Arterial blood by [facility] Pulse oximetry Branch BP Diastolic 2022-05-27 00:00:00 95 mm[Hg] Latrice Bernal edical Height 2022-05-27 00:00:00 61 [in_i] Latrice Bernal [facility] BMI (Body Mass 2022-05-27 00:00:00 40.8 kg/m2 [facility] Index) BP Systolic 2022-05-27 00:00:00 138 mm[Hg] Latrice Bernal [facility] Body Weight 2022-05-27 00:00:00 3456 [oz_av] Latrice Bernal [facility] Systolic blood 2022-05-03 03:30:00 132 mm[Hg] Univer [facility]ity [facility] Diastolic blood 2022-05-03 03:30:00 72 mm[Hg] Unive [facility]ity [facility] Heart rate 2022-05-03 03:30:00 68 /min Universi ty [facility] Body temperature 2022-05-03 03:30:00 37 Cheli [facility] Respiratory rate 2022-05-03 03:30:00 14 /min [facility] Oxygen saturation in 2022-05-03 03:30:00 99 /min [facility] Arterial blood by [facility] Pulse oximetry Branch Body height 2022-05-03 00:38:00 152.4 cm [facility] [place] Body weight 2022-05-03 00:38:00 90[address] [facility] BMI 2022-05-03 00:38:00 39.06 kg/m2 Universi ty [facility] Systolic blood 2021-08-08 14:58:00 142 mm[Hg] Univer sity of pressure [facility] Diastolic blood 2021-08-08 14:58:00 88 mm[Hg] Unive [facility]ity [facility] Heart rate 2021-08-08 14:58:00 71 /min [facility] Body height 2021-08-08 14:58:00 152.4 cm [facility] Body weight 2021-08-08 14:58:00 90.266 kg [facility] BMI 2021-08-08 14:58:00 38.86 kg/m2 [facility] Oxygen saturation in 2021-08-08 14:58:00 98 /min [facility] Arterial blood by [facility] Pulse oximetry Branch Procedures Procedure Date / Time Performing Clinician Source Performed RAPID STREP SCREEN FOR 2022-09-26 08:26:[address] [facility] A Medical [place] COVID-19 (ID NOW RAPID 2022-09-26 08:26:00 [facility] TESTING) Medical [place] NOTICE OF PRIVACY 2022-09-26 08:17:08 Doctor Unachu, [facility] [place] [facility] [place] CONSENT/REFUSAL FOR 2022-09-26 08:15:26 Doctor Unachu, [facility] DIAGNOSIS AND TREATMENT [place] [facility] RAPID STREP SCREEN FOR 2022-05-31 19:01:00 Hosea Caban [facility] RAPID INFLUENZA A/B 2022-05-31 19:01:00 Hosea Caban [facility] CONSENT/REFUSAL FOR 2022-05-31 18:31:35 Doctor Bessie [facility] DIAGNOSIS AND TREATMENT [place] [facility] CT ABDOMEN PELVIS W 2022-05-03 02:02:45 Neeta Knox [facility] CONTRAST [facility] Branch LIPASE 2022-05-03 01:36:00 Neeta Knox o [facility] COMP. METABOLIC PANEL 2022-05-03 01:36:00 Neeta Knox [facility] ([id number]) [facility] CBC WITH DIFF 2022-05-03 01:36:00 Neeta Knox o f [facility] PROTHROMBIN TIME / INR 2022-05-03 01:36:00 Neeta Knox [facility] ACTIVATED PARTIAL THRMPLAS 2022-05-03 01:36:00 Knox, Neeta U [facility] URINALYSIS 2022-05-03 01:36:[address] o f [facility] CONSENT/REFUSAL FOR 2022-05-03 00:27:35 Doctor Unassigned, [facility] DIAGNOSIS AND TREATMENT [place] Medical Branch Cholecystectomy 2017-04-30 00:00:00 [facility] Hernia Repair [facility] Plan of Care Planned Activity Planned Date Details Comments Source Diagnostic Test Pending 2022-05-27 00:00:00 CMP, serum or [facility] plasma [code = CMP, serum or plasma] Diagnostic Test Pending 2022-05-27 00:00:00 lipid panel, serum [facility] [code = lipid panel, serum] Diagnostic Test Pending 2022-05-27 00:00:00 TSH, serum or [facility] plasma [code = TSH, serum or plasma] Diagnostic Test Pending 2022-05-27 00:00:00 T4, total, serum [facility] [code = T4, total, serum] Diagnostic Test Pending 2022-05-27 00:00:00 T3, free, serum or [facility] plasma [code = T3, free, serum or plasma] Encounters Start End Encounter Admission Attending Care Care Encounter Source Date/Time Date/Time Type Type Clinicians Facility Department ID 2021-02-24 Emergency [facility] [id number] Univers 15:27:38 [facility] 2022-09-28 2022-09-28 Urgent Edwige Bell [facility] 1.2.840.11 [id number] Univers 19:00:00 19:00:00 Care Unknown, Attending HEALTH [id number] [facility] 4.2.7.2.686 Villa as ELAINE?BLEA [phone] [address] MEDICAL OFFICE BUILDING 2022-09-28 2022-09-28 Outpatient R RAY [facility] [id number] Univers 19:00:00 18:59:31 EDWIGE [facility] 2022-09-26 2022-09-26 Emergency X ADRIAN [facility] ERT [id number] Univers 03:22:00 04:50:00 ELLEN [facility] 2022-09-26 2022-09-26 Emergency Yaritate, [facility] [id number] Univers 03:22:00 04:50:00 Ellen FISHMANANN 350.1.13.10 ity of [place] 4.2.7.2.686 [facility] [phone] [facility] 084 Branch 2022-05-31 2022-05-31 Emergency X CABAN [facility] ERT [id number] Univers 12:47:00 14:11:00 HOSEA ity [facility] 2022-05-31 2022-05-31 Emergency [facility] 1.2.840.114 [id number] Univers 12:47:00 14:11:00 Hosea CANALES 350.1.13.10 i ty of [place] 4.2.7.2.686 [facility] [id number] [facility] 084 [place] 2022-05-31 2022-05-31 Orders Doctor RODRIGUEZ 1.2.840.114 [id number] Univers 00:00:00 00:00:00 Only Unassigned, ANGIE 350.1.13.10 ity of [place] [facility] 4.2.7.2.686 [facility] [id number] [facility] 009 Branch 2022-05-27 2022-05-27 Outpatient GC_CPC_Walk PRIV PRIV [id number] [facility] 00:00:00 00:00:00 InSchedul [id number] [facility] 2022-05-27 2022-05-27 Barrett PRIV [facility] [id number] [facility] 00:00:00 00:00:00 MD Liz: Health - Med ica [id number] GC_CPC_Need [address] [address], [place] [address] , Ph. 2022-05-02 2022-05-02 Emergency [facility] [id number] Univers 18:39:00 21:49:00 NEETA suha [facility] 2022-05-02 2022-05-02 Emergency [facility] [id number] [id number] Univers 18:39:00 21:49:00 Neeta CANALES 350.1.13.10 i ty of [place].7.2.[place] [id number] [facility] 084 [place] 2022-03-17 2022-03-17 Outpatient R CRISTIAN [facility] [id number] Univers 15:30:00 15:30:00 JACOB [facility] 2022-02-20 2022-02-20 Refill [facility] [id number] Univers 00:00:00 00:00:00 Jacob [facility] 350.1.13.10 it y of [place] 4.2.7.2.686 Villa as ELAINE?BLEA [id number] [facility] [address] [facility] OFFICE [facility] 2021-11-28 2021-11-28 Outpatient R BON [facility] [id number] Univers 10:30:00 10:30:00 [facility] 2021-08-19 2021-08-19 Patient Bon [facility] 1..840.114 [id number] Univers 00:00:00 00:00:00 Secure Msg [employer] [id number] ity of [place] 4.2.7.2.686 Villa as ELAINE?BLEA [id number] [facility] [address] [facility] OFFICE [facility] 2021-08-08 2021-08-08 Supervising Floorperson Jesse, Adc Lab Main [facility] 1.2.8 40.114 [id number] Univers 12:00:00 12:15:00 Visit Lynne Crockett 350.1.13.10 ity [facility] 4.2.7.2.686 [place] [facility] [id number] [place]h [place] [facility] [address] [facility] 2021-08-08 2021-08-08 Outpatient R BON [facility] [id number] Univers 10:00:00 10:31:25 [facility] 2021-08-08 2021-08-08 Office [facility] ..840.114 [id number] Univers 10:00:00 10:31:25 Visit Lynne HEALTH 350.1.13.10 it [facility] 4.2.7.2.686 Villa as ELAINE?BLEA [id number] [address] MEDICAL OFFICE [facility] 2021-08-08 2021-08-08 Letter Bon [facility] 1.2.840.114 [id number] Univers 00:00:00 00:00:00 (Out) [facility] 350.1.13.10 it y of [place] 4.2.7.2.686 [place] as ELAINE?BLEA [id number] [address] MEDICAL OFFICE [facility] 2021-08-08 2021-08-08 Orders Doctor RODRIGUEZ 1.2.840.114 [id number] Univers 00:00:00 00:00:00 Only Unassigned, ANGIE 350.1.13.10 ity of [place] [facility] 4.2.7.2.686 Villa as [id number] [facility] 009 [place] 2021-08-05 2021-08-05 Letter [facility] 1.2.840.114 [id number] Univers 00:00:00 00:00:00 (Out) [facility] 350.1.13.10 it y of [place] 4.2.7.2.686 Villa as ELAINE?BLEA [id number] [address] OFFICE [facility] 2021-04-20 2021-04-20 Emergency X RAMA, K [facility] ERT [id number] Univers 14:36:00 18:19:[address] [facility] 2021-04-20 2021-04-20 Emergency Rama, Jordy [facility] 1.2.840.114 [id number] Univers 14:36:00 18:19:00 Hayley [place] 350.1.13.10 i ty of [place] 4[place]2.7.2.[place] [id number] [facility] 084 [place] 2021-04-20 2021-04-20 Emergency X RAMA, K [facility] ERT [id number] Univers 14:36:00 18:19:[address] [facility] 2021-04-14 2021-04-14 Emergency X [facility] ERT [id number] Univers 15:07:00 16:58:00 JOE borden [facility] 2021-04-14 2021-04-14 Emergency [facility] [id number] Univers 15:07:00 16:58:00 Joe Helms ALLY 350.1.13.10 i ty of [place] 4.[address] [place] [id number] 2021-04-14 2021-04-14 Orders Doctor RODRIGUEZ 1.2.840.114 [id number] Univers 00:00:00 00:00:00 Only Unassigned, ANGIE 350.1.13.10 ity of [place] [address].2..2.686 Villa as [id number] [address] 2021-03-23 2021-03-23 Emergency X [facility] ERT [id number] Univers 14:34:00 18:26:00 SCOTT borden [facility] 2021-03-23 2021-03-23 Emergency [facility] [id number] Univers 14:34:00 18:26:00 Scott CANALES 350.1.13.10 i ty of [place] 4[address]2.7.2.[address] [place] [address] [id number] 2021-03-23 2021-03-23 Orders Doctor RODRIGUEZ 1.2.840.114 [id number] Univers 00:00:00 00:00:00 Only Unassigned, ANGIE 350.1.13.10 ity of [place] [facility] 4.2.7.2.686 Villa as [id number] [address] 2021-02-04 2021-02-04 Outpatient Scooter LENZ [facility] [id number] Univers 16:20:00 16:20:00 [facility] 2021-01-28 2021-01-28 Outpatient Scooter LENZ [facility] [id number] Univers 08:20:00 08:20:00 [facility] 2021-01-07 2021-01-07 Outpatient Scooter LENZ [facility] [id number] Univers 08:50:00 08:47:48 JOSE ej [facility] 2021-01-07 2021-01-07 Imm/Inj Nurse, Adc Pob Immunization [facility] 1.2.840.114 [id number] Univers 08:47:31 08:47:48 Visit Jose Lenz 350.1.13 .10 ity [facility] 4.2.7.2.[place] [phone] Nh dical nal [address] [facility] 2020-11-22 2020-11-22 Outpatient R BON [facility] [id number] Univers 12:00:00 12:00:00 [facility] 2020-11-12 2020-11-12 Outpatient R DELFIN [facility] [id number] Univers 16:40:00 16:40:00 JOSE [facility] 2020-10-14 2020-10-14 Patient Bon [facility] 1.2.840.114 [id number] Univers 00:00:00 00:00:00 Secure Msg Lynne CANALES 350.1.13.10 ity [facility] 4.2.7.2.[place] [id number] Nh dical [facility] [address] [facility] 2020-10-04 2020-10-04 Outpatient R BON [facility] [id number] Univers 00:00:00 00:00:00 [facility] 2020-09-30 2020-09-30 Outpatient R BON [facility] [id number] Univers 00:00:00 00:00:00 [facility] 2020-08-09 2020-08-09 Outpatient R BON [facility] [id number] Univers 09:00:00 09:00:00 [facility] 2020-06-27 2020-06-27 Outpatient R AUDREY [facility] [id number] Univers 10:10:00 10:10:00 ZAKIA [facility] 2020-05-10 2020-05-10 Outpatient R BON [facility] [id number] Univers 10:00:00 10:00:00 LYNNE borden [facility] 2020-02-16 2020-02-16 Outpatient R BON, [facility] [id number] Univers 14:30:00 14:30:00 LYNNE borden [facility] 2019-12-30 2019-12-30 Outpatient R JEANNA, [facility] [id number] Univers 10:30:00 10:30:00 URI borden [facility] 2019-07-22 2019-07-22 Urgent Pob1, Acute [facility] 1.2.840.114 [id number] 17:53:05 18:52:38 [facility] 350.1.13.10 [place] 4.2.7.2.686 Professio [id number] nal [address] 2019-07-22 2019-07-22 Outpatient R SMOOTHTIMMY, [facility] [id number] Univers 18:00:00 18:00:00 MITA borden [facility] 2019-07-20 2019-07-20 Emergency [facility] [id number] [id number] 19:52:58 21:46:00 Frida S [place] 350.1.13.10 [place] 4.2.7.2.686 [place] [id number] 084 2019-07-09 2019-07-09 Outpatient R QUAN, [facility] [id number] Univers 10:17:33 23:59:00 BRANDON suha [facility] 2019-07-09 2019-07-09 [facility] 1.2.840.114 [id number] 10:17:00 23:59:00 Encounter Brandon Bernal [place] 350.1.13.10 [place] 4.2.7.2.686 [place] [id number] 2019-07-09 2019-07-09 Supervising Floorperson Shukri Molina [facility] 1.2.840.114 [id number] 08:16:04 08:31:04 Visit Lab Main [place] 350.1.13.10 [place] 4.2.7.2.686 Professio [phone] nal 353 Building Results Test Description Test Time Test Comments Results Result [facility] e Comments extra 2022-05-30 Extra [facility] lavender-top tube 00:00:00 Lavender-top Medic al TubeComment ACTIVATED PARTIAL THRMPLAS ELIZABETH 2022-05-03 02:03:39 Test Item Value Reference Range Interpretation Comme nts APTT Patient (test code = See_Comment [ Automated message] The 3173-2) system which ge nerated this result tra nsmitted reference range : 23 - 38 Seconds. The re ference range was not u sed to interpret this result as normal/abnormal . KENROY (test code = KENROY) The [facility] patient population mean normal value for aPTT is 30 seconds. Lab Interpretation (test Normal code = 61312-2) [facility]. METABOLIC PANEL (89622)2022-05-03 02:02:38 Test Item Value Reference Range Interpretation Comments NA (test code = 137 mmol/L 135-145 1379701032) K (test code = 4.0 mmol/L 3.5-5.0 0293800719) CL (test code = 102 mmol/L 98-108 7729959539) CO2 TOTAL (test code = 28 mmol/L 23-31 3234483790) AGAP (test code = 2-16 1542450195) BUN (test code = 11 mg/dL 7-23 6183549452) GLUCOSE (test code = 104 mg/dL 70-110 7298708008) CREATININE (test code = 0.64 mg/dL 0.50-1.04 4485758758) TOTAL BILI (test code = 0.3 mg/dL 0.1-1.3 1075638483) CALCIUM (test code = 8.9 mg/dL 8.6-10.6 2327063760) T PROTEIN (test code = 7.1 g/dL 6.3-8.2 1550909303) ALBUMIN (test code = 4.3 g/dL 3.5-5.0 1414803702) ALK PHOS (test code = 85 U/L 34-122 5222846712) ALTv (test code = 38 U/L 5-35 H 1742-6) AST(SGOT) (test code = 33 U/L 13-40 3654464971) eGFR (test code = mL/min/1.73m2 6317342219) KENROY (test code = KENROY) Association of Glomerular Filtration Rate (GFR) and Staging of Kidney Disease* + --+ --+ ------+| GFR (mL/min/1.73 m2) ?| With Kidney Damage ?| ?Without Kidney Damage+ --------+ --------+ +| ?>90 ?| ?Stage one ?| ? Normal ?+ ---+ ---+ -------+| ?60-89 ?| ?Stage two ?| ? Decreased GFR ? + --+ --+ ------+| ?30-59 ?| ?Stage three ?| ? Stage three ? + --+ --+ ------+| ?15-29 ?| ?Stage four ? | ? Stage four ?+ ---+ ---+ -------+| ?<15 (or dialysis) ? ?| ?Stage five ? | ? Stage five ?+ ---+ ---+ -------+ *Each stage assumes the associated GFR level has been in effect for at least three months. ?Stages 1 to 5, with or without kidney disease, indicate chronic kidney disease. Notes: Determination of stages one and two (with eGFR >59mL/min/1.73 m2) requires estimation of kidney damage for at least three months as defined by structural or functional abnormalities of the kidney, manifested by either:Pathological abnormalities or Markers of kidney damage (including abnormalities in the composition of the blood or urine or abnormalities in imaging tests). Lab Interpretation Abnormal (test code = 22063-7) [facility]18 Test Item Value Reference Range Interpretation Comments LIPASE (test code = 2823631250) 102 U/L 0-220 Lab Interpretation (test code = Normal 64213-9) [facility] / [id number] 02:00:35 Test Item Value Reference Range Interpretation Comments PROTIME PATIENT (test See_Comment [Auto mated message] code = 5964-2) The system [employer] generated this result transmitted ref erence range: 12.0 - 1 4.7 Seconds. The re ference range was not u sed to interpret this result as normal/abnor mal. INR (test code = 6301-6) Nor mal INR <1.1; Warfarin Therap eutic range 2.0 to 3. 0 or 2.5 to 3.5, dep ending upon the indica tions. Lab Interpretation (test Normal code = 18384-8) [facility] WITH [id number] 01:52:57 Test Item Value Reference Range Interpretation Comments WBC (test code = See_Comment [Automated message] 6690-2) The system [employer] generated this result transmitted ref erence range: 4.30 - 1 1.10 10*3/?L. The re ference range was not u sed to interpret this result as normal/abnor mal. RBC (test code = See_Comment [Automated message] 789-8) The system [employer] generated this result transmitted ref erence range: 3.93 - 5 .25 10*6/?L. The re ference range was not u sed to interpret this result as normal/abnor mal. HGB (test code = 13.7 g/dL 11.6-15.0 718-7) HCT (test code = 41.0 % 35.7-45.2 4544-3) MCV (test code = 86.0 fL 80.6-95.5 787-2) MCH (test code = 28.7 pg 25.9-32.8 785-6) MCHC (test code = 33.4 g/dL 31.6-35.1 786-4) RDW-SD (test code 39.2 fL 39.0-49.9 = 85837-9) RDW-CV (test code 12.4 % 12.0-15.5 = 788-0) PLT (test code = See_Comment [Automated message] 097-3) The system [employer] generated this result transmitted ref erence range: 166 - 35 8 10*3/?L. The re ference range was not u sed to interpret this result as normal/abnor mal. MPV (test code = 10.4 fL 9.5-12.9 07559-4) NRBC/100 WBC (test See_Comment [Automat ed message] code = 5585315127) The [employer] which generated this result transmitted ref erence range: 0.0 - 10 .0 /100 WBCs. The refer ence range was not u sed to interpret this result as normal/abnor mal. NRBC x10^3 (test See_Comment [Automated message] code = 9036592869) The syste m which generated this result transmitted ref erence range: 10*3/?L. The reference range was not used to interpr et this result as normal/abnormal . GRAN MAT (NEUT) % 57.5 % (test code = 770-8) IMM GRAN % (test 0.50 % code = 5315648785) LYMPH % (test code 32.9 % = 736-9) MONO % (test code 7.0 % = 5905-5) EOS % (test code = 1.7 % 713-8) BASO % (test code 0.4 % = 706-2) GRAN MAT 4.66 10*3/uL 1.88-7.09 x10^3(ANC) (test code = 1602326601) IMM GRAN x10^3 0.04 10*3/uL 0.00-0.06 (test code = 0643339297) LYMPH x10^3 (test 2.67 10*3/uL 1.32-3.29 code = 731-0) MONO x10^3 (test 0.57 10*3/uL 0.33-0.92 code = 742-7) EOS x10^3 (test 0.14 10*3/uL 0.03-0.39 code = 711-2) BASO x10^3 (test 0.03 10*3/uL 0.01-0.07 code = 704-7) [facility]"
--- NOTE | 2023-03-16 15:28 | RAD REPORT ---
EXAM DESCRIPTION: RAD - Chest Single View - 03/16/2023 3:23 pm CLINICAL HISTORY: CHEST PAIN Chest pain. COMPARISON: CHEST SINGLE VIEW dated 12/19/2012 FINDINGS: Portable technique limits examination quality. The lungs are grossly clear. The heart is normal in size. No displaced fractures. IMPRESSION: No acute intrathoracic process suspected.
[2023-03-16] MEDS ORDERED: ALBUTEROL 2.5 MG/3 ML NEB SOL ONE (15:42)
[2023-03-16] MEDS ORDERED: IPRATROPIUM BROM 0.5MG/2.5ML ONE (15:43)
[2023-03-16 16:37] LABS: SARS-COV-2 RT PCR NEGATIVE (NEGATIVE)
--- NOTE | 2023-03-16 16:38 | ER ---
Nurse's Notes [facility] Name: Claudien Deng Age: 47 yrs Sex: Female : 1975 Arrival Date: 03/16/2023 Time: 14:41 Bed 10 Private MD: Diagnosis: Acute upper respiratory infection, unspecified Presentation: 03/16 14:59 Chief complaint: Patient states: Cough and body aches since Sunday, getting worse. nj1 Chills, malaise. Coronavirus screen: Vaccine status: Patient reports receiving the 2nd dose of the covid vaccine. Ebola Screen: Patient denies travel to an Ebola-affected area in the 21 days before illness onset. Initial Sepsis Screen: Does the patient meet any 2 criteria? No. Patient's initial sepsis screen is negative. Does the patient have a suspected source of infection? No. Patient's initial sepsis screen is negative. Risk Assessment: Do you want to hurt yourself or someone else? Patient reports no desire to harm self or others. Onset of symptoms was March 14, 2023. 14:59 Method Of Arrival: Ambulatory [facility] 14:59 Acuity: LUAN 3 nj1 Historical: - Allergies: 15:03 PENICILLINS; nj1 - PMHx: 15:03 been told have fatty litter.; Hypothyroidism; nj1 - Immunization history:: Client reports receiving the 2nd dose of the Covid vaccine. - Social history:: Smoking status: Patient denies any tobacco usage or history of. Screenin:03 [facility] ED Fall Risk Assessment (Adult) History of falling in the last 3 months, ha1 including since admission No falls in past 3 months (0 pts) Confusion or Disorientation No (0 pts) Intoxicated or Sedated No (0 pts) Impaired Gait No (0 pts) Mobility Assist Device Used No (0 pt) Altered Elimination No (0 pt) Score/Fall Risk Level 0 - 2 = Low Risk Oriented to surroundings, Maintained a safe environment, Educated pt \T\ family on fall prevention, incl call for assistance when getting out of bed. Abuse screen: Denies threats or abuse. Denies injuries from another. Nutritional screening: No deficits noted. Tuberculosis screening: No symptoms or risk factors identified. Assessment: 15:04 General: Appears uncomfortable, Behavior is calm, cooperative. Pain: Denies pain. ha1 Neuro: Level of Consciousness is awake, alert, obeys commands, Oriented to person, place, time, situation. Cardiovascular: Patient's skin is warm and dry. Respiratory: Reports cough that is non-productive, dry, Airway is patent Respiratory effort is even, unlabored, Respiratory pattern is regular, symmetrical. GI: No signs and/or symptoms were reported involving the gastrointestinal system. Abdomen is round non-distended. Musculoskeletal: Circulation, motion, and sensation intact. Range of motion: intact in all extremities. 16:00 Reassessment: Patient and/or family updated on plan of care and expected duration. Pain ha1 level reassessed. Patient is alert, oriented x 3, equal unlabored respirations, skin warm/dry/pink. Patient states feeling better. Patient states symptoms have improved. 17:04 Reassessment: Patient and/or family updated on plan of care and expected duration. Pain ha1 level reassessed. Patient is alert, oriented x 3, equal unlabored respirations, skin warm/dry/pink. Patient denies pain at this time. Patient states feeling better. Patient states symptoms have improved. Vital Signs: 14:59 BP 159 / 90; Pulse 89; Resp 18; Temp 98.6(O); Pulse Ox 98% ; Weight 90.72 kg; Height 5 [facility] ft. 0 in. ; Pain 7/10; 16:06 BP 150 / 87; Pulse 85; Resp 20 S; Pulse Ox 98% on R/A; ha1 17:02 BP 130 / 74; Pulse 83; Resp 18 S; Pulse Ox 99% on R/A; ha1 14:59 Body Mass Index 39.06 (90.72 kg, 152.4 cm) nj1 14:59 Pain Scale: Adult [facility] ED Course: 14:42 Patient arrived in ED. rg4 14:45 In[facility] jh7 14:45 Justin Hopper MD is Attending Physician. 7 15:03 Triage completed. nj1 15:03 Arm band placed on right wrist. nj1 15:04 Patient has correct armband on for positive identification. Bed in low position. Call [facility] in reach. Side rails up X 1. 15:25 XRAY Chest (1 view) In Process Unspecified. EDMS 15:45 Monica Nazario, ARELIS is Primary Nurse. ha1 15:45 Provided Education on: medication administration . ha1 15:45 COVID-19/FLU A+B Sent. ha1 17:03 No provider procedures requiring assistance completed. Patient did not have IV access ha1 during this emergency room visit. Administered Medications: 15:45 Drug: DuoNeb Nebulize (2.5 mg - 0.5 mg) 3 ml Nebulizer once Route: Nebulizer; ha1 17:04 Follow up: Response: No adverse reaction ha1 Medication: 16:04 VIS not applicable for this client. 1 Outcome: 16:38 Discharge ordered by . [facility] 17:03 Discharged to home ambulatory, with family, ha1 17:03 Condition: stable 17:03 Discharge instructions given to patient, family, Instructed on discharge instructions, follow up and referral plans. medication usage, Demonstrated understanding of instructions, follow-up care, medications, Prescriptions given X 2, 17:07 Patient left the ED. 1 Signatures: Dispatcher [employer] EDMS Kamille Mcgrath 4 Inge Knowles, AIR TESTER [place] [id number] Monica Nazario, RN RN 1 Andree Perez RN RN nj1 Corrections: (The following items were deleted from the chart) 15:03 15:03 PMHx: Hypertension; nj1 nj1
--- NOTE | 2023-03-16 16:38 | EDPHYS ---
Physician Documentation [facility] Name: Claudine Deng Age: 47 yrs Sex: Female : 1975 Arrival Date: 03/16/2023 Time: 14:41 Bed 10 Private MD: RYLAND Physician Justin Hopper HPI: 03/16 14:55 This 47 yrs old Female presents to ER via Ambulatory with complaints of Cough, jh7 Body Aches. 14:55 The patient or guardian reports cough, flu symptoms, arthralgias, low-grade fever, jh7 myalgias. Onset: The symptoms/episode began/occurred yesterday. Associated signs and symptoms: Pertinent positives: fever, rhinorrhea, Pertinent negatives: diarrhea, sore throat. Historical: - Allergies: 15:03 PENICILLINS; nj1 - PMHx: 15:03 been told have fatty litter.; Hypothyroidism; nj1 - Immunization history:: Client reports receiving the 2nd dose of the Covid vaccine. - Social history:: Smoking status: Patient denies any tobacco usage or history of. ROS: 14:55 Eyes: Negative for injury, pain, redness, and discharge, Neck: Negative for injury, jh7 pain, and swelling, Abdomen/GI: Negative for abdominal pain, nausea, vomiting, diarrhea, and constipation, Back: Negative for injury and pain, MS/Extremity: Negative for injury and deformity, Skin: Negative for injury, rash, and discoloration, Neuro: Negative for headache, weakness, numbness, tingling, and seizure, 14:55 Constitutional: Positive for body aches, fatigue, fever, malaise, 14:55 ENT: Positive for nasal discharge, 14:55 Cardiovascular: Positive for chest pain, with cough, Negative for orthopnea, palpitations, 14:55 Respiratory: Positive for cough, Negative for shortness of breath, 14:55 All other systems are negative, Exam: 14:55 Constitutional: This is a well developed, well nourished patient who is awake, alert, jh7 and in no acute distress. Head/Face: Normocephalic, atraumatic. 14:55 Eyes: Pupils equal round and reactive to light, extra-ocular motions intact. Lids and lashes normal. Conjunctiva and sclera are non-icteric and not injected. Cornea within normal limits. Periorbital areas with no swelling, redness, or edema. Neck: Trachea midline, no thyromegaly or masses palpated, and no cervical lymphadenopathy. Supple, full range of motion without nuchal rigidity, or vertebral point tenderness. No Meningismus. Cardiovascular: Regular rate and rhythm with a normal S1 and S2. No gallops, murmurs, or rubs. Normal PMI, no JVD. No pulse deficits. Respiratory: Lungs have equal breath sounds bilaterally, clear to auscultation and percussion. No rales, rhonchi or wheezes noted. No increased work of breathing, no retractions or nasal flaring. Abdomen/GI: Soft, non-tender, with normal bowel sounds. No distension or tympany. No guarding or rebound. No evidence of tenderness throughout. Skin: Warm, dry with normal turgor. Normal color with no rashes, no lesions, and no evidence of cellulitis. MS/ Extremity: Pulses equal, no cyanosis. Neurovascular intact. Full, normal range of motion. Neuro: Awake and alert, GCS 15, oriented to person, place, time, and situation. Motor strength 5/5 in all extremities. Sensory grossly intact. Normal gait. 14:55 ENT: Posterior pharynx: pooling of secretions, that are mild, Vital Signs: 14:59 BP 159 / 90; Pulse 89; Resp 18; Temp 98.6(O); Pulse Ox 98% ; Weight 90.72 kg; Height 5 nj1 ft. 0 in. ; Pain 7/10; 16:06 BP 150 / 87; Pulse 85; Resp 20 S; Pulse Ox 98% on R/A; ha1 17:02 BP 130 / 74; Pulse 83; Resp 18 S; Pulse Ox 99% on R/A; ha1 14:59 Body Mass Index 39.06 (90.72 kg, 152.4 cm) nj1 14:59 Pain Scale: Adult nj1 MDM: 14:45 Patient medically screened. [facility] 16:40 Differential Diagnosis: Bronchitis Influenza Upper Respiratory Infection Viral Syndrome 7 Pneumonia. Data reviewed: vital signs, nurses notes, radiologic studies, plain films. I considered the following discharge prescriptions or medication management in the emergency department Medications were administered in the Emergency Department. See MAR. Counseling: I had a detailed discussion with the patient and/or guardian regarding the historical points, exam findings, and any diagnostic results supporting the discharge/admit diagnosis, to return to the emergency department if symptoms worsen or persist or if there are any questions or concerns that arise at home. Response to treatment: the patient's symptoms have markedly improved after treatment. 03/16 14:55 Order name: COVID-19/FLU A+B; Complete Time: 16:37 [facility] 03/16 14:55 Order name: XRAY Chest (1 view); Complete Time: 15:29 [facility] 03/16 14:55 Order name: EKG - Nurse/Tech; Complete Time: 15:45 7 EC:40 Rate is 86 beats/min. Rhythm is regular. QRS Galt is Normal. ME interval is normal at [facility] 148 msec. QRS interval is normal at 80 msec. QT interval is normal at 338 msec. No Q waves. T waves are Inverted in lead III. Clinical impression: NSR w/ Non-specific ST/T Changes. Administered Medications: 15:45 Drug: DuoNeb Nebulize (2.5 mg - 0.5 mg) 3 ml Nebulizer once Route: Nebulizer; [facility] 17:04 Follow up: Response: No adverse reaction [facility] Disposition Summary: 03/16/23 16:38 Discharge Ordered Notes: Location: Home [facility] Problem: new [facility] Symptoms: are unchanged [facility] Condition: Stable [facility] Diagnosis - Acute upper respiratory infection, unspecified [facility] Followup: [facility] - With: Private Physician - When: 2 - 3 days - Reason: Recheck today's complaints Discharge Instructions: - Discharge Summary Sheet [facility] - Upper Respiratory Infection, Adult [facility] - Viral Respiratory Infection [facility] Forms: - Medication Reconciliation Form [facility] - Thank You Letter [facility] - Antibiotic Education [facility] - Patient Portal Instructions [facility] - Leadership Thank You Letter [facility] - Work release form [facility] Prescriptions: - Tessalon Perles 100 mg Oral Capsule - take 1 capsule ORAL route every 8 hours As needed; 15 capsule; Refills: 0, [facility] Product Selection Permitted - Albuterol Sulfate 2.5 mg /3 mL (0.083 %) Inhalation Solution for Nebulization - inhale 1 unit NEBULIZATION route every 4-6 hours As needed; 1 Each; Refills: 0, [facility] Product Selection Permitted Signatures: Dispatcher [employer] Inge Larkin FNP HARB[employer] MASTER [facility] Monica Nazario RN RN ha1 Andree Perez RN RN nj1 Corrections: (The following items were deleted from the chart) 15:03 15:03 PMHx: Hypertension; nj1 nj1
[2023-03-16 17:23] VITALS: TEMP 98.6
[2023-03-16 17:27] VITALS: BP 130/74; O2SAT 99
--- NOTE | 2023-03-21 17:09 | EKG ---
Test Date: 2023-03-16 Test Time: 15:40:46 Advertising Solicitor: PAOLA MEASUREMENT RESULTS: Intervals: Rate: 86 SD: 148 QRSD: 80 QT: 338 QTc: 404 Keno: P: 48 SD: 148 QRS: 41 T: -11 INTERPRETIVE STATEMENTS: Normal sinus rhythm Possible Anterior infarct, age undetermined T wave abnormality, consider inferior ischemia Abnormal ECG Compared to ECG 12/19/2012 19:51:00 Myocardial infarct finding now present T-wave abnormality now present Possible ischemia now present Electronically Signed On 03-21-23 16:55:55 [employer] TECHNICIAN by Carlos Barraza
== END 2023-03-16 17:07 | disposition home or self-care (01) ==
LOC: ER 14:41
DX: J06.9 Acute upper respiratory infection, unspecified (principal); Z11.52 Encounter for screening for COVID-19; Z88.0 Allergy status to penicillin
CPT/HCPCS: 0240U; 71045; 93005; 94640; 99284; J7613; J7644